=== PATIENT | female | born 1960 | race Caucasian/White ===

== ENCOUNTER 2017-02-28 14:18 | Inpatient (IN) | payer OTHER ==
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
[2017-02-28 15:24] LABS: Basophils % (A) 1 %; CH 31.4; CHCM 35.2; Eosinophils # (A) 0.1 k/uL (0-0.7); Eosinophils % (A) 1 %; HCT 43.2 % (34.0-46.0); HDW 2.81; HGB 15.1 gm/dL (11.4-16.0); Luc # (Auto) 0.11; Luc % (Auto) 2; Lymphocytes % (A) 18 %; MCH 31.2 pg (25.0-35.0); MCHC 34.9 g/dL (31.0-37.0); MCV 89.4 fL (80.0-100.0); Mean Platelet Volume 6.8; Monocytes # (A) 0.3 k/uL (0-1.0); Monocytes % (A) 6 %; Neutrophils # (A) 4.2 k/uL (1.3-7.7); Neutrophils % (A) 73 %; RBC 4.83 m/uL (3.80-5.40); RDW 13.3 % (11.5-15.5); WBC 5.8 k/uL (3.8-10.6); WBC (Perox) 5.28
[2017-02-28 15:34] LABS: ALT 59 U/L (9-52); AST 47 U/L (14-36); Alkaline Phosphatase 56 U/L (38-126); Anion Gap 12 mmol/L; Blood Urea Nitrogen 14 mg/dL (7-17); Calcium 9.4 mg/dL (8.4-10.2); Carbon Dioxide 21 mmol/L (22-30); Chloride 101 mmol/L (98-107); Glucose 316 mg/dL (74-99); Non-African American GFR(MDRD) >60 (>60 ml/min/1.73 sqM); Sodium 134 mmol/L (137-145)
[2017-02-28 15:37] LABS: Potassium 4.2 mmol/L (3.5-5.1)
[2017-02-28 16:00] LABS: Troponin I 0.013 ng/mL (0.000-0.034)
[2017-02-28 16:05] LABS: Creatine Kinase MB 3.7 ng/mL (0.0-2.4)
[2017-02-28] MEDS ORDERED: HYDROmorphone 1 MG/ML 1 ML SYRINGE IVP STA (16:08)
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
[2017-02-28] MEDS ORDERED: ONDANSETRON 4 MG/2 ML VIAL IVP STA (18:17)
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
[2017-02-28] MEDS ORDERED: ONDANSETRON 4 MG/2 ML VIAL IVP PRN (19:42)
[2017-02-28] MEDS ORDERED: NALOXONE 0.4 MG/ML 1 ML VIAL IV PRN (19:42)
[2017-02-28] MEDS: SODIUM CHLORIDE 0.9% 1,000 ML IV SCH (20:22)
[2017-02-28 20:35] LABS: Glucose,Whole Blood 333 mg/dL (75-99)
[2017-02-28] MEDS: INSULIN LISPRO (humaLOG) 300 UNIT/3 ML VIAL SQ SCH (22:13)
[2017-02-28] MEDS: glipiZIDE 10 MG TAB PO SCH (22:13)
[2017-02-28] MEDS: FAMOTIDINE 20 MG TAB PO SCH (22:13)
[2017-02-28 22:24] LABS: Glucose,Whole Blood 314 mg/dL (75-99)
[2017-02-28 23:56] LABS: Creatine Kinase MB 4.1 ng/mL (0.0-2.4); Troponin I 0.072 ng/mL (0.000-0.034)
[2017-03-01] MEDS: HYDROmorphone 1 MG/ML 1 ML SYRINGE IVP PRN ×2 (03:32→08:38)
[2017-03-01 03:39] LABS: Creatine Kinase MB 3.5 ng/mL (0.0-2.4); Troponin I 0.067 ng/mL (0.000-0.034)
--- NOTE | 2017-03-01 06:33 | XR ---
EXAMINATION TYPE: XR chest 2V DATE OF EXAM: 03/01/2017 HISTORY: Recheck, rule out pulmonary contusion. REFERENCE: Previous study dated 02/28/2017. FINDINGS: The lungs appear clear. Pleural space are clear. Heart size is normal. IMPRESSION: NO ACUTE INTRATHORACIC ABNORMALITY.
[2017-03-01 06:42] LABS: Glucose,Whole Blood 221 mg/dL (75-99)
[2017-03-01] MEDS: INSULIN LISPRO (humaLOG) 300 UNIT/3 ML VIAL SQ SCH ×4 (06:56→21:14)
[2017-03-01] MEDS ORDERED: BISOPROLOL-HCTZ 5-6.25 MG 1 EACH TAB PO SCH (09:00)
[2017-03-01] MEDS ORDERED: NON-FORMULARY DRUG (Ubidecarenone [Co Q-10] 100 MG) PO SCH (09:00)
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
[2017-03-01] MEDS: FAMOTIDINE 20 MG TAB PO SCH ×2 (10:43→21:13)
[2017-03-01] MEDS: glipiZIDE 10 MG TAB PO SCH (10:43)
[2017-03-01] MEDS: LISINOPRIL 10 MG TAB PO SCH (10:44)
[2017-03-01 10:50] LABS: Hemoglobin A1C 12.3 % (4.2-6.1)
[2017-03-01] MEDS ORDERED: ALBUTEROL NEBULIZED 2.5 MG/3 ML INHALATION PRN (11:26)
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
[2017-03-01 12:17] LABS: Glucose,Whole Blood 274 mg/dL (75-99)
--- NOTE | 2017-03-01 12:18 | ECHOF ---
Referral Reason:Rule out cardiac contusion, pericardial effusion MEASUREMENTS -------- HEIGHT: 160.0 cm WEIGHT: 70.8 kg BP: 149/76 IVSd: 1.2 cm (0.6 - 1.1) LVIDd: 4.1 cm (3.9 - 5.3) LVPWd: 1.2 cm (0.6 - 1.1) LVIDs: 3.2 cm RVIDd: 2.7 cm (< 3.3) LAESV Index (A-L): 17.36 ml/m Ao Diam: 3.0 cm (2.0 - 3.7) LA Diam: 3.4 cm (2.7 - 3.8) AV Cusp: 1.7 cm (1.5 - 2.6) EPSS: 1.1 cm MV E Mendel: 0.74 m/s MV DecT: 448 ms MV A Mendel: 1.19 m/s MV E/A Ratio: 0.62 RAP: 5.00 mmHg RVSP: 11.07 mmHg MV EF SLOPE: 107.95 mm/s (70 - 150) MV EXCURSION: 14.58 mm (> 18.000) FINDINGS -------- Sinus rhythm. This was a technically good study. The left ventricular size is normal. There is mild concentric left ventricular hypertrophy. Overall left ventricular systolic function is normal with, an EF between 55 - 60 %. The right ventricle is normal in size and function. Normal LA size by volume 22+/-6 ml/m2. The right atrium is normal in size. Aortic valve is trileaflet and is mildly thickened. There is no evidence of aortic regurgitation. There is no evidence of aortic stenosis. The mitral valve leaflets are mildly thickened. There is trace mitral regurgitation. Trace tricuspid regurgitation present. Right ventricular systolic pressure is normal at < 35 mmHg. There is no evidence of pulmonary hypertension. The pulmonic valve is normal. The aortic root size is normal. Normal inferior vena cava with normal inspiratory collapse consistent with estimated right atrial pressure of 5 mmHg. The pericardium is normal. There is a trivial pericardial effusion present. CONCLUSIONS -------- 1. Sinus rhythm. 2. Trace tricuspid regurgitation present. 3. Right ventricular systolic pressure is normal at < 35 mmHg. 4. There is no evidence of pulmonary hypertension. 5. The aortic root size is normal. 6. There is a trivial pericardial effusion present. 7. This was a technically good study. 8. The left ventricular size is normal. 9. There is mild concentric left ventricular hypertrophy. 10. Overall left ventricular systolic function is normal with, an EF between 55 - 60 %. 11. Normal LA size by volume 22+/-6 ml/m2. 12. Aortic valve is trileaflet and is mildly thickened. 13. The mitral valve leaflets are mildly thickened. 14. There is trace mitral regurgitation. [place] MATE: Lionel Hitchcock RDCS
[2017-03-01] MEDS: HYDROcodone/APAP 5-325MG 1 EACH TAB PO PRN ×3 (12:23→21:09)
[2017-03-01] MEDS: SODIUM CHLORIDE 0.9% 1,000 ML IV SCH (12:24)
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
[2017-03-01 17:29] LABS: Glucose,Whole Blood 261 mg/dL (75-99)
[2017-03-01] MEDS ORDERED: INSULIN GLARGINE 100 UNIT/ML 10 ML VIAL SQ SCH (21:00)
[2017-03-01 21:08] LABS: Glucose,Whole Blood 230 mg/dL (75-99)
[2017-03-02] MEDS: HYDROcodone/APAP 5-325MG 1 EACH TAB PO PRN ×2 (00:34→06:27)
[2017-03-02] MEDS: SODIUM CHLORIDE 0.9% 1,000 ML IV SCH (00:35)
[2017-03-02] MEDS: glipiZIDE 10 MG TAB PO SCH ×2 (00:35→08:15)
[2017-03-02 04:58] VITALS: RESP 18
[2017-03-02 06:02] LABS: Glucose,Whole Blood 173 mg/dL (75-99)
[2017-03-02] MEDS: INSULIN LISPRO (humaLOG) 300 UNIT/3 ML VIAL SQ SCH ×2 (06:26→12:01)
[2017-03-02] MEDS: FAMOTIDINE 20 MG TAB PO SCH (08:15)
[2017-03-02] MEDS: LISINOPRIL 10 MG TAB PO SCH (08:15)
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
[2017-03-02 11:54] LABS: Glucose,Whole Blood 279 mg/dL (75-99)
[2017-03-02 12:24] VITALS: BP 161/76; PULSE 80; TEMP 97.6
[2017-03-02 13:23] VITALS: BMI 27.9
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
== END 2017-03-02 14:30 | disposition home or self-care (01) | DRG 184 ==
LOC: EC 14:18 → 6SEL 19:42
PROVIDERS: ADMIT Surgery; ATTEND Surgery
DX: S22.20XA Unspecified fracture of sternum, initial encounter for closed fracture (principal); S26.91XA Contusion of heart, unspecified with or without hemopericardium, initial encounter; E87.1 Hypo-osmolality and hyponatremia; E11.65 Type 2 diabetes mellitus with hyperglycemia; M48.02 Spinal stenosis, cervical region; M51.34 Other intervertebral disc degeneration, thoracic region; M47.814 Spondylosis without myelopathy or radiculopathy, thoracic region; M16.0 Bilateral primary osteoarthritis of hip; I10 Essential (primary) hypertension; K21.9 Gastro-esophageal reflux disease without esophagitis; E11.9 Type 2 diabetes mellitus without complications; R59.9 Enlarged lymph nodes, unspecified; E78.5 Hyperlipidemia, unspecified; Z79.84 Long term (current) use of oral hypoglycemic drugs; Z79.899 Other long term (current) drug therapy; Z90.710 Acquired absence of both cervix and uterus; Z85.71 Personal history of Hodgkin lymphoma; Z87.891 Personal history of nicotine dependence; Z88.1 Allergy status to other antibiotic agents; Z88.0 Allergy status to penicillin; Z88.2 Allergy status to sulfonamides; V49.40XA Driver injured in collision with unspecified motor vehicles in traffic accident, initial encounter; Y92.410 Unspecified street and highway as the place of occurrence of the external cause
CPT/HCPCS: 36415; 71020; 71250; 72070; 72100; 72125; 72170; 80053; 82550; 82553; 83036; 84484; 85025; 93005; 93306; 96361; 96374; 96375; 99285

== ENCOUNTER → 2017-05-15 | Outpatient (CLI) | payer OTHER ==
--- NOTE | 2017-05-15 14:48 | XR ---
Sternum HISTORY: Sternal fracture, Trauma and pain 02/28/2017 2 views of the sternum. Exam correlated to CT 02/28/2017 The patient's sternal fracture is not seen well on plain film, CT scan could be performed for better evaluation. Bone scan may be of benefit. Bone mineralization is maintained. No evident dislocation. N o evident periostitis is seen to suggest fracture healing. IMPRESSION: Exam is limited for evaluation of fracture.
--- NOTE | 2017-05-15 15:01 | XR ---
Two-view spine HISTORY: Trauma 02/28/2017, persistent pain 2 views of the spine are submitted to include 3 views of the cervical spine, frontal and lateral view s of the thoracic and lumbar spine total of 9 images. Correlation to prior CT cervical spine 02/28/2017 The posterior longitudinal ligament shows the calcification as on previous CT. Multilevel spondylosis is again seen. Cervical, thoracic, lumbar vertebral bodies show preserved height and alignment. Bone mineralization is mildly reduced. Disc height loss is present at multiple levels. Sclerosis in the p osterior elements of the lower lumbar spine compatible with facet arthropathy. C7-T1 not well seen. IMPRESSION: Degenerative disc disease, facet arthropathy, ossification of the longitudinal ligament.
--- NOTE | 2017-05-15 15:07 | XR ---
EXAMINATION TYPE: XR chest 2V DATE OF EXAM: 05/15/2017 COMPARISON: Prior chest x-ray 03/01/2017 HISTORY: Renal fracture TECHNIQUE: Frontal and lateral views of the chest are obtained. FINDINGS: There is no focal air space opacity, pleural effusion, or pneumothorax seen. The cardiac silhouette size is within normal limits. The osseous structures are intact. IMPRESSION: No acute cardiopulmonary process.
== END | disposition home or self-care (01) ==
LOC: RADXRMAIN 10:40
PROVIDERS: ATTEND Family Medicine
DX: M50.30 Other cervical disc degeneration, unspecified cervical region (principal); S22.20XS Unspecified fracture of sternum, sequela
CPT/HCPCS: 71020; 71120; 72082

== ENCOUNTER → 2017-05-19 | Outpatient (CLI) | payer OTHER ==
--- NOTE | 2017-05-20 10:50 | ECHOF ---
Referral Reason:S26.91XS Contusion of heart, unspecified MEASUREMENTS -------- HEIGHT: 165.1 cm WEIGHT: 70.3 kg BP: RVIDd: 2.5 cm (< 3.3) IVSd: 1.3 cm (0.6 - 1.1) LVIDd: 4.1 cm (3.9 - 5.3) LVPWd: 1.0 cm (0.6 - 1.1) IVSs: 1.6 cm LVIDs: 3.4 cm LVPWs: 1.1 cm LA Diam: 3.0 cm (2.7 - 3.8) LAESV Index (A-L): 17.43 ml/m Ao Diam: 2.6 cm (2.0 - 3.7) AV Cusp: 1.6 cm (1.5 - 2.6) LA Diam: 3.6 cm (2.7 - 3.8) MV EXCURSION: 13.970 mm (> 18.000) MV EF SLOPE: 68 mm/s (70 - 150) EPSS: 0.9 cm MV E Mendel: 0.45 m/s MV DecT: 274 ms MV A Mendel: 0.62 m/s MV E/A Ratio: 0.73 RAP: 5.00 mmHg RVSP: 22.84 mmHg FINDINGS -------- Sinus rhythm. This was a technically good study. The left ventricular size is normal. There is mild concentric left ventricular hypertrophy. Overa ll left ventricular systolic function is normal with, an EF between 55 - 60 %. The right ventricle is normal in size. Normal LA size by volume 22+/-6 ml/m2. The right atrial size is normal. The aortic valve is trileaflet, and appears structurally normal. No aortic stenosis or regurgitation. Mild mitral regurgitation is present. Mild tricuspid regurgitation present. There is no evidence of pulmonary hypertension. The right v entricular systolic pressure, as measured by Doppler, is 22.84mmHg. There is no pulmonic regurgitation present. The aortic root size is normal. There is no pericardial effusion. CONCLUSIONS -------- 1. The left ventricular size is normal. 2. There is mild concentric left ventricular hypertrophy. 3. Overall left ventricular systolic function is normal with, an EF between 55 - 60 %. 4. The aortic valve is trileaflet, and appears structurally normal. No aortic stenosis or regurgitati on. 5. Mild mitral regurgitation is present. 6. Mild tricuspid regurgitation present. 7. There is no evidence of pulmonary hypertension. 8. The right ventricular systolic pressure, as measured by Doppler, is 22.84mmHg. 9. There is no pulmonic regurgitation present. 10. The aortic root size is normal. 11. There is no pericardial effusion. 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
== END | disposition home or self-care (01) ==
LOC: RADECHMAIN 08:18
PROVIDERS: ATTEND Family Medicine
DX: I08.1 Rheumatic disorders of both mitral and tricuspid valves (principal); S26.9 Injury of heart, unspecified with or without hemopericardium
CPT/HCPCS: 93306

== ENCOUNTER → 2017-12-31 | Outpatient (CLI) | payer OTHER ==
--- NOTE | 2017-12-31 09:43 | MR ---
EXAMINATION TYPE: MR shoulder LT wo con DATE OF EXAM: 12/31/2017 COMPARISON: None HISTORY: Left shoulder pain TECHNIQUE: Multiplanar, multisequence imaging of the left shoulder is performed without contrast. FINDINGS: Rotator Cuff: There is diffuse thickening and increased signal involving the distal margin of the sup raspinatus tendon extending a length of 2 cm in AP dimension of 1.6 cm. Findings compatible with diff use tendinopathy and partial intrasubstance tear with no evidence of retraction. There is thickening of the insertion of the infraspinatus tendon but no diagnostic evidence of throug h thickness tear or retraction. Scapularis tendon intact. Acromioclavicular Joint: Mild hypertrophic change of the AC joint. With very minimal impingement. Glenohumeral Joint: Joint space preserved and there is no sizable joint effusion. Inferior glenohumer al ligament intact. Labrum: The labrum appears grossly intact given limitation of non-arthrogram study. Biceps Tendon: The long head of biceps is in normal location within bicipital groove. Bone marrow signal: Tiny cystic benign-appearing changes involving the humeral head may been the basi s of impingement. Other: No additional significant abnormality is appreciated. IMPRESSION: 1. Findings compatible with diffuse tendinopathy of the distal margin of the supraspinatus tendon wit h findings compatible with a 1.6 m partial intrasubstance tear but no evidence of retraction. 2. Tendinopathy at the insertion of the infraspinatus tendon without evidence of overt tear also note d.
== END | disposition home or self-care (01) ==
LOC: RADMRIMAIN 08:54
PROVIDERS: ATTEND Family Medicine
DX: M75.82 Other shoulder lesions, left shoulder (principal)

== ENCOUNTER 2020-09-17 09:06 | Emergency (ER) | payer MEDICARE ==
[2020-09-17 09:13] VITALS: RESP 18; TEMP 98.1
[2020-09-17] MEDS ORDERED: SODIUM CHLORIDE 0.9% 500 ML 500 ML IV STA (09:31)
--- NOTE | 2020-09-17 09:45 | ED ---
General Adult HPI - General Chief complaint: Seizure Stated complaint: seizure Time Seen by Provider: 09/17/20 09:09 Source: patient, RN notes reviewed, old records reviewed Mode of arrival: ambulatory Limitations: no limitations - History of Present Illness Initial comments: 59-year-old female history of hypertension, diabetes, vascular dementia presen ting with suspected syncopal versus seizure. History is obtained from the patient's and EMS. Patient had begun to collapse, she was caught by her and lowered to the ground. She had approximately 10 minutes of unresponsiveness and seizure-like activity. She is at her baseline mental status upon arrival to the emergency department with no complaints. There is no preceding symptoms. Patient's states that she has been eating and drinking well. No fever. No pain complaints. No history of seizures. - Related Data Home Medications Medication Instructions Recorded Confirmed Multivitamins, Thera [Multivitamin 1 tab PO DAILY 02/28/17 02/28/17 (formulary)] Ubidecarenone [Co Q-10] 100 mg PO DAILY 02/28/17 02/28/17 glipiZIDE [Glucotrol] 10 mg PO BID 02/28/17 02/28/17 Previous Rx's Medication Instructions Recorded Docusate [Colace] 100 mg PO BID #30 capsule 03/01/17 Hydrocodone/Acetaminophen [Seney 1 each PO Q6HR PRN #10 tab 03/01/17 5-325] Insulin Glargine [Lantus] 20 unit SQ HS #1 vial 03/02/17 Lisinopril [Prinivil] 20 mg PO DAILY #0 03/02/17 Allergies Allergy/AdvReac Type Severity Reaction Status Date / Time levofloxacin Allergy Rash/Hives Verified 09/17/20 09:13 Penicillins Allergy Rash/Hives Verified 09/17/20 09:13 Sulfa (Sulfonamide Allergy Unknown Verified 09/17/20 09:13 Antibiotics) Review of Systems ROS Statement: Those systems with pertinent positive or pertinent negative responses have been documented in the HPI. ROS Other: All systems not noted in ROS Statement are negative. Past Medical History Past Medical History: Cancer, CVA/TIA, Dementia, Diabetes Mellitus Additional Past Medical History / Comment(s): hodgkin's lymphoma, vasular dementia, History of Any Multi-Drug Resistant Organisms: None Reported Past Surgical History: Hysterectomy Additional Past Surgical History / Comment(s): left sided chest Past Psychological History: No Psychological Hx Reported Smoking Status: Former smoker Past Alcohol Use History: None Reported Past Drug Use History: None Reported General Exam Limitations: no limitations General appearance: alert, in no apparent distress Head exam: Present: atraumatic, normocephalic Eye exam: Present: normal appearance, PERRL ENT exam: Present: normal exam Neck exam: Present: normal inspection. Absent: tenderness, meningismus Respiratory exam: Present: normal lung sounds bilaterally. Absent: respiratory distress, wheezes Cardiovascular Exam: Present: regular rate, normal rhythm GI/Abdominal exam: Present: soft. Absent: distended, tenderness, guarding Neurological exam: Present: alert, CN II-XII intact, other (Expressive aphasia, which is baseline.). Absent: oriented X3, motor sensory deficit Psychiatric exam: Present: normal affect, normal mood Skin exam: Present: warm, dry, intact. Absent: cyanosis, diaphoretic Course Vital Signs 09/17/20 09/17/20 09:08 11:27 Temperature 98.1 F Pulse Rate 94 92 Respiratory 18 18 Rate Blood Pressure 116/66 120/84 O2 Sat by Pulse 96 97 Oximetry EKG Findings - EKG Comments: EKG Findings:: EKG: Normal sinus rhythm rate of 89, [place] interval 156, QRS duration 90, QTC 462, no ST segment elevation T-wave inversion in the lateral precordial leads. Medical Decision Making - Medical Decision Making 59-year-old female presenting with suspected seizure, no previous history. Head CT performed showing chronic ischemic changes, possible cerebellar infarct. No intracranial hemorrhage or mass effect. Patient is hemodynamically stable, baseline mental status while emergency department. She does have a normal CMP, normal CBC, mild hypomagnesemia which is replaced. She will be admitted with neurology on consult for suspected new onset seizure. Case discussed with Dr. Arroyo who will admit. - Lab Data Result diagrams: 09/17/20 09:38 09/17/20 09:38 Lab Results 09/17/20 09/17/20 Range/Units 09:38 09:38 WBC 4.5 (3.8-10.6) k/uL RBC 4.36 (3.80-5.40) m/uL Hgb 13.2 (11.4-16.0) gm/dL Hct 40.2 (34.0-46.0) % MCV 92.2 (80.0-100.0) fL MCH 30.2 (25.0-35.0) pg MCHC 32.8 (31.0-37.0) g/dL RDW 13.4 (11.5-15.5) % Plt Count 218 (150-450) k/uL MPV 7.5 Neutrophils % 68 % Lymphocytes % 19 % Monocytes % 6 % Eosinophils % 5 % Basophils % 1 % Neutrophils # 3.1 (1.3-7.7) k/uL Lymphocytes # 0.9 L (1.0-4.8) k/uL Monocytes # 0.3 (0-1.0) k/uL Eosinophils # 0.2 (0-0.7) k/uL Basophils # 0.0 (0-0.2) k/uL Sodium 142 (137-145) mmol/L Potassium 4.1 (3.5-5.1) mmol/L Chloride 108 H (98-107) mmol/L Carbon Dioxide 26 (22-30) mmol/L Anion Gap 8 mmol/L BUN 30 H (7-17) mg/dL Creatinine 0.85 (0.52-1.04) mg/dL Est GFR (CKD-EPI)AfAm 88 (>60 ml/min/1.73 sqM) Est GFR (CKD-EPI)NonAf 76 (>60 ml/min/1.73 sqM) Glucose 123 H (74-99) mg/dL Calcium 9.7 (8.4-10.2) mg/dL Magnesium 1.3 L (1.6-2.3) mg/dL Total Bilirubin 0.7 (0.2-1.3) mg/dL AST 30 (14-36) U/L ALT 17 (4-34) U/L Alkaline Phosphatase 29 L (38-126) U/L Total Protein 7.1 (6.3-8.2) g/dL Albumin 4.2 (3.5-5.0) g/dL Disposition Clinical Impression: New onset seizure Disposition: ADMITTED IP TO THIS HOSP Condition: Stable Is patient prescribed a controlled substance at d/c from ED?: No Referrals: Kacie Rogers MD [Primary Care Provider] - 1-2 days Decision to Admit Reason: Admit from EC Decision Date: 09/17/20 Decision Time: 12:06
--- NOTE | 2020-09-17 10:12 | CT ---
EXAMINATION TYPE: CT brain wo con DATE OF EXAM: 09/17/2020 HISTORY: Possible seizure activity per patient family. History of dementia and CVA. CT DLP: 1056.4 mGycm. Automated Exposure Control for Dose Reduction was Utilized. TECHNIQUE: CT scan of the head is performed without contrast. COMPARISON: None. FINDINGS: There is no acute intracranial hemorrhage or midline shift identified. There is mild to m oderate diffuse ventricular and sulcal prominence consistent with diffuse age-related cerebral atroph y. There is mild to moderate low-attenuation in the periventricular white matter consistent with chr onic small vessel ischemic change. Old infarct inferior aspect right cerebellar hemisphere and infer ior central aspect left cerebellar hemisphere suspected axial image 15. The globes are intact and the visualized sinuses are clear. IMPRESSION: No acute intracranial hemorrhage or midline shift. There is mild to moderate diffuse ag e-related cerebral atrophy and chronic small vessel ischemic change along with bilateral inferior cer ebellar infarcts all noted.
[2020-09-17 10:15] LABS: Basophils % (A) 1 %; Eosinophils # (A) 0.2 k/uL (0-0.7); Eosinophils % (A) 5 %; HCT 40.2 % (34.0-46.0); HGB 13.2 gm/dL (11.4-16.0); Lymphocytes # (A) 0.9 k/uL (1.0-4.8); Lymphocytes % (A) 19 %; MCH 30.2 pg (25.0-35.0); MCHC 32.8 g/dL (31.0-37.0); MCV 92.2 fL (80.0-100.0); Mean Platelet Volume 7.5; Monocytes # (A) 0.3 k/uL (0-1.0); Monocytes % (A) 6 %; Neutrophils # (A) 3.1 k/uL (1.3-7.7); Neutrophils % (A) 68 %; Platelet Count 218 k/uL (150-450); RBC 4.36 m/uL (3.80-5.40); RDW 13.4 % (11.5-15.5); WBC 4.5 k/uL (3.8-10.6)
--- NOTE | 2020-09-17 10:16 | XR ---
EXAMINATION TYPE: XR chest 2V DATE OF EXAM: 09/17/2020 CLINICAL HISTORY: syncope/seizure. TECHNIQUE: Frontal and lateral view of the chest. COMPARISON: 05/15/2017 FINDINGS: The cardiomediastinal silhouette is within normal limits for size. Pulmonary vasculature i s normal. There is no focal air space opacity. No pleural effusion. No pneumothorax seen. Degenerati ve changes of the spine. IMPRESSION: No acute cardiopulmonary process.
[2020-09-17 10:30] LABS: Albumin 4.2 g/dL (3.5-5.0); Calcium 9.7 mg/dL (8.4-10.2); Magnesium 1.3 mg/dL (1.6-2.3); Potassium 4.1 mmol/L (3.5-5.1); Total Bilirubin 0.7 mg/dL (0.2-1.3); Total Protein 7.1 g/dL (6.3-8.2)
[2020-09-17] MEDS ORDERED: MAGNESIUM SULFATE-D5W PMX 1 GM in DEXTROSE/WATER 1 100ML.BAG IVPB ONE (11:24)
[2020-09-17] MEDS ORDERED: NALOXONE 0.4 MG/ML 1 ML VIAL IV PRN (12:02)
[2020-09-17] MEDS ORDERED: ACETAMINOPHEN TAB 325 MG TAB PO PRN (12:02)
[2020-09-17] MEDS ORDERED: SODIUM CHLORIDE 0.9% 1,000 ML IV SCH (12:15)
[2020-09-17 12:39] LABS: Appearance,Urine Clear (Clear); Bacteria,Urine Many /hpf; Bilirubin,Urine Negative (Negative); Blood,Urine Trace (Negative); Color,Urine Light Yellow; Glucose,Urine (UA) Negative (Negative); Ketones,Urine Negative (Negative); Leukocyte Esterase,Urine Small (Negative); Mucus,Urine Rare /hpf; Nitrite,Urine Negative (Negative); Protein,Urine Negative (Negative); RBC,Urine 6 /hpf (0-5); Specific Gravity,Urine 1.008 (1.001-1.035); Urobilinogen,Urine <2.0 mg/dL (<2.0); WBC,Urine 6 /hpf (0-5)
--- NOTE | 2020-09-17 13:08 | ED ---
Medical Decision Making - Lab Data Result diagrams: 09/17/20 09:38 09/17/20 09:38 Lab Results 09/17/20 09/17/20 09/17/20 Range/Units 09:38 09:38 09:38 WBC 4.5 (3.8-10.6) k/uL RBC 4.36 (3.80-5.40) m/uL Hgb 13.2 (11.4-16.0) gm/dL Hct 40.2 (34.0-46.0) % MCV 92.2 (80.0-100.0) fL MCH 30.2 (25.0-35.0) pg MCHC 32.8 (31.0-37.0) g/dL RDW 13.4 (11.5-15.5) % Plt Count 218 (150-450) k/uL MPV 7.5 Neutrophils % 68 % Lymphocytes % 19 % Monocytes % 6 % Eosinophils % 5 % Basophils % 1 % Neutrophils # 3.1 (1.3-7.7) k/uL Lymphocytes # 0.9 L (1.0-4.8) k/uL Monocytes # 0.3 (0-1.0) k/uL Eosinophils # 0.2 (0-0.7) k/uL Basophils # 0.0 (0-0.2) k/uL Sodium 142 (137-145) mmol/L Potassium 4.1 (3.5-5.1) mmol/L Chloride 108 H (98-107) mmol/L Carbon Dioxide 26 (22-30) mmol/L Anion Gap 8 mmol/L BUN 30 H (7-17) mg/dL Creatinine 0.85 (0.52-1.04) mg/dL Est GFR (CKD-EPI)AfAm 88 (>60 ml/min/1.73 sqM) Est GFR (CKD-EPI)NonAf 76 (>60 ml/min/1.73 sqM) Glucose 123 H (74-99) mg/dL Calcium 9.7 (8.4-10.2) mg/dL Magnesium 1.3 L (1.6-2.3) mg/dL Total Bilirubin 0.7 (0.2-1.3) mg/dL AST 30 (14-36) U/L ALT 17 (4-34) U/L Alkaline Phosphatase 29 L (38-126) U/L Total Protein 7.1 (6.3-8.2) g/dL Albumin 4.2 (3.5-5.0) g/dL Urine Color Light Yellow Urine Appearance Clear (Clear) Urine pH 7.0 (5.0-8.0) Ur Specific [place] 1.008 (1.001-1.035) Urine Protein Negative (Negative) Urine Glucose (UA) Negative (Negative) Urine Ketones Negative (Negative) Urine Blood Trace H (Negative) Urine Nitrite Negative (Negative) Urine Bilirubin Negative (Negative) Urine Urobilinogen <2.0 (<2.0) mg/dL Ur Leukocyte Esterase Small H (Negative) Urine RBC 6 H (0-5) /hpf Urine WBC 6 H (0-5) /hpf Urine Bacteria Many H (None) /hpf Urine Mucus Rare H (None) /hpf Disposition Clinical Impression: New onset seizure Disposition: ADMITTED IP TO THIS [facility] Condition: Stable Time of Disposition: 13:08
[2020-09-17 13:44] VITALS: BP 120/75; PULSE 87
== END 2020-09-17 13:40 | disposition home or self-care (01) ==
LOC: EC 09:06 → 1SOBS 12:02 → UNDOADMOB 12:02 → EC 13:40
DX: R55 Syncope and collapse (principal); E11.9 Type 2 diabetes mellitus without complications; F03.90 Unspecified dementia, unspecified severity, without behavioral disturbance, psychotic disturbance, mood disturbance, and anxiety; Z86.73 Personal history of transient ischemic attack (TIA), and cerebral infarction without residual deficits; Z87.891 Personal history of nicotine dependence; Z90.710 Acquired absence of both cervix and uterus; Z85.9 Personal history of malignant neoplasm, unspecified; Z79.4 Long term (current) use of insulin
CPT/HCPCS: 36415; 93005; 80053; 83735; 85025; 81001; 71046; 70450; 99285; 96365; 96361; J3475

== ENCOUNTER 2020-09-24 04:11 | Observation (INO) | payer MEDICARE ==
--- NOTE | 2020-09-24 04:26 | ED ---
Seizure HPI - General Stated Complaint: Altered Mental Status Time Seen by Provider: 09/24/20 04:13 Source: patient, EMS, RN notes reviewed, old records reviewed Mode of arrival: EMS Limitations: altered mental status - History of Present Illness Initial Comments: This is a 51-year-old female DF for evaluation patient Dese for evaluation of altered mental status and acting appropriately seizure-like activity. Patient does have history of seizure. No recent trauma no drug or alcohol abuse per the patient. Patient is a poor story that she presents in a postictal state history obtained by EMS MD Complaint: seizure, possible seizure -: unknown Description of Episode: loss of consciousness -: second(s) Witnessed: yes - by bystander Trauma: Yes Seizure History: known seizure disorder Place: home Possible Precipitating Event: none Associated Symptoms: confusion, weakness Treatments Prior to Arrival: none - Related Data Home Medications Medication Instructions Recorded Confirmed Aspirin EC [Ecotrin Low Dose] 81 mg PO DAILY 09/17/20 09/24/20 Bisoprolol-Hctz 5-6.25 mg [Ziac 1 tab PO DAILY 09/17/20 09/24/20 5-6.25 MG] Cholecalciferol [Vitamin D3 (25 50 mcg PO DAILY 09/17/20 09/24/20 Mcg = 1000 Iu)] Dextromethorphan HBr/Quinidine 1 cap PO BID 09/17/20 09/24/20 [Nuedexta 20-10 mg Capsule] Insulin Glargine,Hum.rec.anlog 15 unit SQ DAILY 09/17/20 09/24/20 [Lantus Solostar] Lisinopril [Prinivil] 10 mg PO DAILY 09/17/20 09/24/20 Multivit-Min/Iron/Folic/Lutein 1 tab PO DAILY 09/17/20 09/24/20 [Centrum Silver Women Tablet] Pioglitazone [Actos] 15 mg PO DAILY 09/17/20 09/24/20 QUEtiapine [SEROquel] 25 mg PO DAILY 09/17/20 09/24/20 QUEtiapine [SEROquel] 50 mg PO HS 09/17/20 09/24/20 metFORMIN HCL [Glucophage] 1,000 mg PO BID 09/17/20 09/24/20 Previous Rx's Medication Instructions Recorded Atorvastatin [Lipitor] 40 mg PO HS 30 Days #30 tab 09/26/20 Levothyroxine Sodium [Synthroid] 25 mcg PO DAILY@0630 30 Days #30 09/26/20 tab Nitrofurantoin Monohyd/M-Cryst 100 mg PO Q12HR 7 Days #14 cap 09/26/20 [Macrobid] levETIRAcetam [Keppra] 500 mg PO Q12HR 30 Days #60 tab 09/26/20 Allergies Allergy/AdvReac Type Severity Reaction Status Date / Time levofloxacin Allergy Rash/Hives Verified 09/24/20 06:58 Penicillins Allergy Rash/Hives Verified 09/24/20 06:58 Sulfa (Sulfonamide Allergy Unknown Verified 09/24/20 06:58 Antibiotics) Review of Systems ROS Statement: Those systems with pertinent positive or pertinent negative responses have been documented in the HPI. ROS Other: All systems not noted in ROS Statement are negative. Past Medical History Past Medical History: Cancer, CVA/TIA, Dementia, Diabetes Mellitus, Seizure Disorder Additional Past Medical History / Comment(s): hodgkin's lymphoma, vasular dementia, History of Any Multi-Drug Resistant Organisms: None Reported Past Surgical History: Hysterectomy Additional Past Surgical History / Comment(s): left sided chest Past Psychological History: No Psychological Hx Reported Smoking Status: Former smoker Past Alcohol Use History: None Reported Past Drug Use History: None Reported General Exam Limitations: altered mental status General appearance: alert, in no apparent distress Head exam: Present: atraumatic, normocephalic, normal inspection Eye exam: Present: normal appearance, PERRL, EOMI. Absent: scleral icterus, conjunctival injection, periorbital swelling ENT exam: Present: normal exam, mucous membranes moist Neck exam: Present: normal inspection. Absent: tenderness, meningismus, lymphadenopathy Respiratory exam: Present: normal lung sounds bilaterally. Absent: respiratory distress, wheezes, rales, rhonchi, stridor Cardiovascular Exam: Present: regular rate, normal rhythm, normal heart sounds. Absent: systolic murmur, diastolic murmur, rubs, gallop, clicks GI/Abdominal exam: Present: soft, normal bowel sounds. Absent: distended, tenderness, guarding, rebound, rigid Extremities exam: Present: normal inspection, full ROM, normal capillary refill. Absent: tenderness, pedal edema, joint swelling, calf tenderness Back exam: Present: normal inspection Neurological exam: Present: alert, oriented X3, CN II-XII intact Psychiatric exam: Present: normal affect, normal mood Skin exam: Present: warm, dry, intact, normal color. Absent: rash Course Vital Signs 09/24/20 09/24/20 09/24/20 04:21 07:00 07:02 Temperature 98.2 F 97.3 F L Pulse Rate 93 87 Pulse Rate [ 83 Left] Respiratory 16 18 16 Rate Blood Pressure 170/78 128/79 Blood Pressure 106/69 [Left Arm] O2 Sat by Pulse 98 97 99 Oximetry - Reevaluation(s) Reevaluation #1: Medical record is reviewed Patient has no significant acute symptoms improving symptoms here in the ER Patient informed results and questions have been answered Patient has had recurrent seizure here in the ER Medical Decision Making - Medical Decision Making 51 female DF for altered mental status, patient presents with seizure epileptic seizures in recurrent seizure here in the ER. Patient be admitted for neurological evaluation - Lab Data Result diagrams: 09/26/20 06:05 09/26/20 06:05 Lab Results 09/24/20 09/24/20 09/24/20 Range/Units 04:37 04:42 04:42 WBC (3.8-10.6) k/uL RBC (3.80-5.40) m/uL Hgb (11.4-16.0) gm/dL Hct (34.0-46.0) % MCV (80.0-100.0) fL MCH (25.0-35.0) pg MCHC (31.0-37.0) g/dL RDW (11.5-15.5) % Plt Count (150-450) k/uL MPV Neutrophils % % Lymphocytes % % Monocytes % % Eosinophils % % Basophils % % Neutrophils # (1.3-7.7) k/uL Lymphocytes # (1.0-4.8) k/uL Monocytes # (0-1.0) k/uL Eosinophils # (0-0.7) k/uL Basophils # (0-0.2) k/uL Sodium 141 (137-145) mmol/L Potassium 5.5 H (3.5-5.1) mmol/L Chloride 102 (98-107) mmol/L Carbon Dioxide 29 (22-30) mmol/L Anion Gap 10 mmol/L BUN 24 H (7-17) mg/dL Creatinine 0.84 (0.52-1.04) mg/dL Est GFR (CKD-EPI)AfAm 89 (>60 ml/min/1.73 sqM) Est GFR (CKD-EPI)NonAf 77 (>60 ml/min/1.73 sqM) Glucose 113 H (74-99) mg/dL POC Glucose (mg/dL) (75-99) mg/dL POC Glu [employer] Account Executive ID Estimated Ave Glu mg/dL Hemoglobin A1c (4.0-6.0) % Calcium 9.8 (8.4-10.2) mg/dL Total Bilirubin 1.0 (0.2-1.3) mg/dL AST 48 H (14-36) U/L ALT 23 (4-34) U/L Alkaline Phosphatase 32 L (38-126) U/L Total Protein 8.1 (6.3-8.2) g/dL Albumin 4.7 (3.5-5.0) g/dL Vitamin B6 (5-50) ug/L Vitamin B12 515.0 (200.0-944.0) pg/mL Folate >24.0 ng/mL TSH 9.210 H (0.350-5.500) uIU/mL Free T4 (0.80-1.80) ng/dL Urine Color Urine Appearance (Clear) Urine pH (5.0-8.0) Ur Specific [place] (1.001-1.035) Urine Protein (Negative) Urine Glucose (UA) (Negative) Urine Ketones (Negative) Urine Blood (Negative) Urine Nitrite (Negative) Urine Bilirubin (Negative) Urine Urobilinogen (<2.0) mg/dL Ur Leukocyte Esterase (Negative) Urine RBC (0-5) /hpf Urine WBC (0-5) /hpf Ur Squamous Epith Cells (0-4) /hpf Urine Bacteria (None) /hpf Urine Yeast (Budding) (None) /hpf Salicylates <1.0 mg/dL Urine Opiates Screen (NotDetected) Ur Oxycodone Screen (NotDetected) Urine Methadone Screen (NotDetected) Ur Propoxyphene Screen (NotDetected) Acetaminophen <10.0 ug/mL Ur Barbiturates Screen (NotDetected) U Tricyclic Antidepress (NotDetected) Ur Phencyclidine Scrn (NotDetected) Ur Amphetamines Screen (NotDetected) U Methamphetamines Scrn (NotDetected) U Benzodiazepines Scrn (NotDetected) Urine Cocaine Screen (NotDetected) U Marijuana (THC) Screen (NotDetected) Serum Alcohol <10 mg/dL Coronavirus (PCR) Not Detected (Not Detectd) 09/24/20 09/24/20 09/24/20 Range/Units 04:42 05:17 05:17 WBC 6.9 (3.8-10.6) k/uL RBC 4.13 (3.80-5.40) m/uL Hgb 13.0 (11.4-16.0) gm/dL Hct 37.9 (34.0-46.0) % MCV 91.7 (80.0-100.0) fL MCH 31.6 (25.0-35.0) pg MCHC 34.4 (31.0-37.0) g/dL RDW 13.0 (11.5-15.5) % Plt Count 236 (150-450) k/uL MPV 7.2 Neutrophils % 81 % Lymphocytes % 10 % Monocytes % 6 % Eosinophils % 2 % Basophils % 1 % Neutrophils # 5.6 (1.3-7.7) k/uL Lymphocytes # 0.7 L (1.0-4.8) k/uL Monocytes # 0.4 (0-1.0) k/uL Eosinophils # 0.2 (0-0.7) k/uL Basophils # 0.0 (0-0.2) k/uL Sodium (137-145) mmol/L Potassium (3.5-5.1) mmol/L Chloride (98-107) mmol/L Carbon Dioxide (22-30) mmol/L Anion Gap mmol/L BUN (7-17) mg/dL Creatinine (0.52-1.04) mg/dL Est GFR (CKD-EPI)AfAm (>60 ml/min/1.73 sqM) Est GFR (CKD-EPI)NonAf (>60 ml/min/1.73 sqM) Glucose (74-99) mg/dL POC Glucose (mg/dL) (75-99) mg/dL POC Glu [employer] Executive ID Estimated [address] Glu mg/dL 128 Hemoglobin A1c 6.1 H (4.0-6.0) % Calcium (8.4-10.2) mg/dL Total Bilirubin (0.2-1.3) mg/dL AST (14-36) U/L ALT (4-34) U/L Alkaline Phosphatase (38-126) U/L Total Protein (6.3-8.2) g/dL Albumin (3.5-5.0) g/dL Vitamin B6 (5-50) ug/L Vitamin B12 (200.0-944.0) pg/mL Folate ng/mL TSH (0.350-5.500) uIU/mL Free T4 1.20 (0.80-1.80) ng/dL Urine Color Urine Appearance (Clear) Urine pH (5.0-8.0) Ur Specific [place] (1.001-1.035) Urine Protein (Negative) Urine Glucose (UA) (Negative) Urine Ketones (Negative) Urine Blood (Negative) Urine Nitrite (Negative) Urine Bilirubin (Negative) Urine Urobilinogen (<2.0) mg/dL Ur Leukocyte Esterase (Negative) Urine RBC (0-5) /hpf Urine WBC (0-5) /hpf Ur Squamous Epith Cells (0-4) /hpf Urine Bacteria (None) /hpf Urine Yeast (Budding) (None) /hpf Salicylates mg/dL Urine Opiates Screen (NotDetected) Ur Oxycodone Screen (NotDetected) Urine Methadone Screen (NotDetected) Ur Propoxyphene Screen (NotDetected) Acetaminophen ug/mL Ur Barbiturates Screen (NotDetected) U Tricyclic Antidepress (NotDetected) Ur Phencyclidine Scrn (NotDetected) Ur Amphetamines Screen (NotDetected) U Methamphetamines Scrn (NotDetected) U Benzodiazepines Scrn (NotDetected) Urine Cocaine Screen (NotDetected) U Marijuana (THC) Screen (NotDetected) Serum Alcohol mg/dL Coronavirus (PCR) (Not Detectd) 09/24/20 09/24/20 09/24/20 Range/Units 11:27 17:15 17:47 WBC (3.8-10.6) k/uL RBC (3.80-5.40) m/uL Hgb (11.4-16.0) gm/dL Hct (34.0-46.0) % MCV (80.0-100.0) fL MCH (25.0-35.0) pg MCHC (31.0-37.0) g/dL RDW (11.5-15.5) % Plt Count (150-450) k/uL MPV Neutrophils % % Lymphocytes % % Monocytes % % Eosinophils % % Basophils % % Neutrophils # (1.3-7.7) k/uL Lymphocytes # (1.0-4.8) k/uL Monocytes # (0-1.0) k/uL Eosinophils # (0-0.7) k/uL Basophils # (0-0.2) k/uL Sodium (137-145) mmol/L Potassium (3.5-5.1) mmol/L Chloride (98-107) mmol/L Carbon Dioxide (22-30) mmol/L Anion Gap mmol/L BUN (7-17) mg/dL Creatinine (0.52-1.04) mg/dL Est GFR (CKD-EPI)AfAm (>60 ml/min/1.73 sqM) Est GFR (CKD-EPI)NonAf (>60 ml/min/1.73 sqM) Glucose (74-99) mg/dL POC Glucose (mg/dL) 165 H 79 98 (75-99) mg/dL POC Glu [employer] Executive ID Rhody, Oneyda Rhody, Oneyda Rhody, Oneyda [address] Glu mg/dL Hemoglobin A1c (4.0-6.0) % Calcium (8.4-10.2) mg/dL Total Bilirubin (0.2-1.3) mg/dL AST (14-36) U/L ALT (4-34) U/L Alkaline Phosphatase (38-126) U/L Total Protein (6.3-8.2) g/dL Albumin (3.5-5.0) g/dL Vitamin B6 (5-50) ug/L Vitamin B12 (200.0-944.0) pg/mL Folate ng/mL TSH (0.350-5.500) uIU/mL Free T4 (0.80-1.80) ng/dL Urine Color Urine Appearance (Clear) Urine pH (5.0-8.0) Ur Specific [place] (1.001-1.035) Urine Protein (Negative) Urine Glucose (UA) (Negative) Urine Ketones (Negative) Urine Blood (Negative) Urine Nitrite (Negative) Urine Bilirubin (Negative) Urine Urobilinogen (<2.0) mg/dL Ur Leukocyte Esterase (Negative) Urine RBC (0-5) /hpf Urine WBC (0-5) /hpf Ur Squamous Epith Cells (0-4) /hpf Urine Bacteria (None) /hpf Urine Yeast (Budding) (None) /hpf Salicylates mg/dL Urine Opiates Screen (NotDetected) Ur Oxycodone Screen (NotDetected) Urine Methadone Screen (NotDetected) Ur Propoxyphene Screen (NotDetected) Acetaminophen ug/mL Ur Barbiturates Screen (NotDetected) U Tricyclic Antidepress (NotDetected) Ur Phencyclidine Scrn (NotDetected) Ur Amphetamines Screen (NotDetected) U Methamphetamines Scrn (NotDetected) U Benzodiazepines Scrn (NotDetected) Urine Cocaine Screen (NotDetected) U Marijuana (THC) Screen (NotDetected) Serum Alcohol mg/dL Coronavirus (PCR) (Not Detectd) 09/24/20 09/24/20 09/25/20 Range/Units 18:24 20:38 05:11 WBC (3.8-10.6) k/uL RBC (3.80-5.40) m/uL Hgb (11.4-16.0) gm/dL Hct (34.0-46.0) % MCV (80.0-100.0) fL MCH (25.0-35.0) pg MCHC (31.0-37.0) g/dL RDW (11.5-15.5) % Plt Count (150-450) k/uL MPV Neutrophils % % Lymphocytes % % Monocytes % % Eosinophils % % Basophils % % Neutrophils # (1.3-7.7) k/uL Lymphocytes # (1.0-4.8) k/uL Monocytes # (0-1.0) k/uL Eosinophils # (0-0.7) k/uL Basophils # (0-0.2) k/uL Sodium (137-145) mmol/L Potassium (3.5-5.1) mmol/L Chloride (98-107) mmol/L Carbon Dioxide (22-30) mmol/L Anion Gap mmol/L BUN (7-17) mg/dL Creatinine (0.52-1.04) mg/dL Est GFR (CKD-EPI)AfAm (>60 ml/min/1.73 sqM) Est GFR (CKD-EPI)NonAf (>60 ml/min/1.73 sqM) Glucose (74-99) mg/dL POC Glucose (mg/dL) 95 (75-99) mg/dL POC Glu [employer] Account Executive ID Sonya Munoz [address] Glu mg/dL Hemoglobin A1c (4.0-6.0) % Calcium (8.4-10.2) mg/dL Total Bilirubin (0.2-1.3) mg/dL AST (14-36) U/L ALT (4-34) U/L Alkaline Phosphatase (38-126) U/L Total Protein (6.3-8.2) g/dL Albumin (3.5-5.0) g/dL Vitamin B6 18 (5-50) ug/L Vitamin B12 (200.0-944.0) pg/mL Folate ng/mL TSH (0.350-5.500) uIU/mL Free T4 (0.80-1.80) ng/dL Urine Color Urine Appearance (Clear) Urine pH (5.0-8.0) Ur Specific [place] (1.001-1.035) Urine Protein (Negative) Urine Glucose (UA) (Negative) Urine Ketones (Negative) Urine Blood (Negative) Urine Nitrite (Negative) Urine Bilirubin (Negative) Urine Urobilinogen (<2.0) mg/dL Ur Leukocyte Esterase (Negative) Urine RBC (0-5) /hpf Urine WBC (0-5) /hpf Ur Squamous Epith Cells (0-4) /hpf Urine Bacteria (None) /hpf Urine Yeast (Budding) (None) /hpf Salicylates mg/dL Urine Opiates Screen Not Detected (NotDetected) Ur Oxycodone Screen Not Detected (NotDetected) Urine Methadone Screen Not Detected (NotDetected) Ur Propoxyphene Screen Not Detected (NotDetected) Acetaminophen ug/mL Ur Barbiturates Screen Not Detected (NotDetected) U Tricyclic Antidepress Detected H (NotDetected) Ur Phencyclidine Scrn Not Detected (NotDetected) Ur Amphetamines Screen Not Detected (NotDetected) U Methamphetamines Scrn Not Detected (NotDetected) U Benzodiazepines Scrn Detected H (NotDetected) Urine Cocaine Screen Not Detected (NotDetected) U Marijuana (THC) Screen Not Detected (NotDetected) Serum Alcohol mg/dL Coronavirus (PCR) (Not Detectd) 09/25/20 09/25/20 09/25/20 Range/Units 07:28 11:53 17:04 WBC (3.8-10.6) k/uL RBC (3.80-5.40) m/uL Hgb (11.4-16.0) gm/dL Hct (34.0-46.0) % MCV (80.0-100.0) fL MCH (25.0-35.0) pg MCHC (31.0-37.0) g/dL RDW (11.5-15.5) % Plt Count (150-450) k/uL MPV Neutrophils % % Lymphocytes % % Monocytes % % Eosinophils % % Basophils % % Neutrophils # (1.3-7.7) k/uL Lymphocytes # (1.0-4.8) k/uL Monocytes # (0-1.0) k/uL Eosinophils # (0-0.7) k/uL Basophils # (0-0.2) k/uL Sodium (137-145) mmol/L Potassium (3.5-5.1) mmol/L Chloride (98-107) mmol/L Carbon Dioxide (22-30) mmol/L Anion Gap mmol/L BUN (7-17) mg/dL Creatinine (0.52-1.04) mg/dL Est GFR (CKD-EPI)AfAm (>60 ml/min/1.73 sqM) Est GFR (CKD-EPI)NonAf (>60 ml/min/1.73 sqM) Glucose (74-99) mg/dL POC Glucose (mg/dL) 112 H 111 H 108 H (75-99) mg/dL POC Glu [employer] Marcella Feldman Jennifer Kirschner, Tiffany [address] Glu mg/dL Hemoglobin A1c (4.0-6.0) % Calcium (8.4-10.2) mg/dL Total Bilirubin (0.2-1.3) mg/dL AST (14-36) U/L ALT (4-34) U/L Alkaline Phosphatase (38-126) U/L Total Protein (6.3-8.2) g/dL Albumin (3.5-5.0) g/dL Vitamin B6 (5-50) ug/L Vitamin B12 (200.0-944.0) pg/mL Folate ng/mL TSH (0.350-5.500) uIU/mL Free T4 (0.80-1.80) ng/dL Urine Color Urine Appearance (Clear) Urine pH (5.0-8.0) Ur Specific [place] (1.001-1.035) Urine Protein (Negative) Urine Glucose (UA) (Negative) Urine Ketones (Negative) Urine Blood (Negative) Urine Nitrite (Negative) Urine Bilirubin (Negative) Urine Urobilinogen (<2.0) mg/dL Ur Leukocyte Esterase (Negative) Urine RBC (0-5) /hpf Urine WBC (0-5) /hpf Ur Squamous Epith Cells (0-4) /hpf Urine Bacteria (None) /hpf Urine Yeast (Budding) (None) /hpf Salicylates mg/dL Urine Opiates Screen (NotDetected) Ur Oxycodone Screen (NotDetected) Urine Methadone Screen (NotDetected) Ur Propoxyphene Screen (NotDetected) Acetaminophen ug/mL Ur Barbiturates Screen (NotDetected) U Tricyclic Antidepress (NotDetected) Ur Phencyclidine Scrn (NotDetected) Ur Amphetamines Screen (NotDetected) U Methamphetamines Scrn (NotDetected) U Benzodiazepines Scrn (NotDetected) Urine Cocaine Screen (NotDetected) U Marijuana (THC) Screen (NotDetected) Serum Alcohol mg/dL Coronavirus (PCR) (Not Detectd) 09/25/20 09/25/20 Range/Units 18:25 22:51 WBC (3.8-10.6) k/uL RBC (3.80-5.40) m/uL Hgb (11.4-16.0) gm/dL Hct (34.0-46.0) % MCV (80.0-100.0) fL MCH (25.0-35.0) pg MCHC (31.0-37.0) g/dL RDW (11.5-15.5) % Plt Count (150-450) k/uL MPV Neutrophils % % Lymphocytes % % Monocytes % % Eosinophils % % Basophils % % Neutrophils # (1.3-7.7) k/uL Lymphocytes # (1.0-4.8) k/uL Monocytes # (0-1.0) k/uL Eosinophils # (0-0.7) k/uL Basophils # (0-0.2) k/uL Sodium (137-145) mmol/L Potassium (3.5-5.1) mmol/L Chloride (98-107) mmol/L Carbon Dioxide (22-30) mmol/L Anion Gap mmol/L BUN (7-17) mg/dL Creatinine (0.52-1.04) mg/dL Est GFR (CKD-EPI)AfAm (>60 ml/min/1.73 sqM) Est GFR (CKD-EPI)NonAf (>60 ml/min/1.73 sqM) Glucose (74-99) mg/dL POC Glucose (mg/dL) 114 H (75-99) mg/dL POC Glu [employer] Account Executive ID SalbadorDiana [address] Glu mg/dL Hemoglobin A1c (4.0-6.0) % Calcium (8.4-10.2) mg/dL Total Bilirubin (0.2-1.3) mg/dL AST (14-36) U/L ALT (4-34) U/L Alkaline Phosphatase (38-126) U/L Total Protein (6.3-8.2) g/dL Albumin (3.5-5.0) g/dL Vitamin B6 (5-50) ug/L Vitamin B12 (200.0-944.0) pg/mL Folate ng/mL TSH (0.350-5.500) uIU/mL Free T4 (0.80-1.80) ng/dL Urine Color Yellow Urine Appearance Cloudy H (Clear) Urine pH 5.5 (5.0-8.0) Ur Specific [place] 1.009 (1.001-1.035) Urine Protein Negative (Negative) Urine Glucose (UA) Negative (Negative) Urine Ketones Negative (Negative) Urine Blood Small H (Negative) Urine Nitrite Negative (Negative) Urine Bilirubin Negative (Negative) Urine Urobilinogen <2.0 (<2.0) mg/dL Ur Leukocyte Esterase Large H (Negative) Urine RBC 2 (0-5) /hpf Urine WBC 54 H (0-5) /hpf Ur Squamous Epith Cells <1 (0-4) /hpf Urine Bacteria Few H (None) /hpf Urine Yeast (Budding) Occasional H (None) /hpf Salicylates mg/dL Urine Opiates Screen (NotDetected) Ur Oxycodone Screen (NotDetected) Urine Methadone Screen (NotDetected) Ur Propoxyphene Screen (NotDetected) Acetaminophen ug/mL Ur Barbiturates Screen (NotDetected) U Tricyclic Antidepress (NotDetected) Ur Phencyclidine Scrn (NotDetected) Ur Amphetamines Screen (NotDetected) U Methamphetamines Scrn (NotDetected) U Benzodiazepines Scrn (NotDetected) Urine Cocaine Screen (NotDetected) U Marijuana (THC) Screen (NotDetected) Serum Alcohol mg/dL Coronavirus (PCR) (Not Detectd) - EKG Data -: EKG Interpreted by Me (EKG is sinus rhythm 89 PA 120 QRS 94 QTC 493) Disposition Clinical Impression: Epileptic seizure, generalized, Generalized seizure Disposition: ADMITTED IP TO THIS [facility] Condition: Stable Is patient prescribed a controlled substance at d/c from ED?: No
[2020-09-24] MEDS ORDERED: SODIUM CHLORIDE 0.9% 500 ML 500 ML IV STA (04:33)
[2020-09-24] MEDS ORDERED: SODIUM CHLORIDE 0.9% 1,000 ML IV STA (04:33)
[2020-09-24] MEDS ORDERED: SODIUM CHLORIDE 0.9% 1,000 ML IV ONE (04:33)
[2020-09-24] MEDS ORDERED: levETIRAcetam IV 1,000 MG in SALINE 1 100ML.BAG IVPB STA (04:56)
[2020-09-24 05:07] LABS: ALT 23 U/L (4-34); Acetaminophen <10.0 ug/mL; African American GFR (CKD) 89 (>60 ml/min/1.73 sqM); Albumin 4.7 g/dL (3.5-5.0); Alcohol <10 mg/dL; Anion Gap 10 mmol/L; Blood Urea Nitrogen 24 mg/dL (7-17); Calcium 9.8 mg/dL (8.4-10.2); Carbon Dioxide 29 mmol/L (22-30); Chloride 102 mmol/L (98-107); Glucose 113 mg/dL (74-99); Non-African American GFR(CKD) 77 (>60 ml/min/1.73 sqM); Salicylate <1.0 mg/dL; Sodium 141 mmol/L (137-145); Total Protein 8.1 g/dL (6.3-8.2)
[2020-09-24 05:24] LABS: AST 48 U/L (14-36); Alkaline Phosphatase 32 U/L (38-126); Potassium 5.5 mmol/L (3.5-5.1)
[2020-09-24 05:26] LABS: Basophils % (A) 1 %; Eosinophils # (A) 0.2 k/uL (0-0.7); Eosinophils % (A) 2 %; HCT 37.9 % (34.0-46.0); Lymphocytes # (A) 0.7 k/uL (1.0-4.8); Lymphocytes % (A) 10 %; MCH 31.6 pg (25.0-35.0); MCHC 34.4 g/dL (31.0-37.0); MCV 91.7 fL (80.0-100.0); Mean Platelet Volume 7.2; Monocytes # (A) 0.4 k/uL (0-1.0); Monocytes % (A) 6 %; Neutrophils # (A) 5.6 k/uL (1.3-7.7); Neutrophils % (A) 81 %; Platelet Count 236 k/uL (150-450); RBC 4.13 m/uL (3.80-5.40); WBC 6.9 k/uL (3.8-10.6)
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
[2020-09-24] MEDS ORDERED: NON FORMULARY DRUG (Aspirin Ec 81 MG Tablet.Dr) PO SCH (10:15)
[2020-09-24 11:29] LABS: Glucose,Whole Blood 165 mg/dL (75-99)
[2020-09-24] MEDS: QUEtiapine 25 MG TAB PO SCH (11:56)
[2020-09-24] MEDS: lisinopriL 10 MG TAB PO SCH (11:56)
[2020-09-24] MEDS: CHOLECALCIFEROL 25 MCG (1000 IU) TABLET PO SCH (11:56)
[2020-09-24] MEDS: metFORMIN 500 MG TAB PO SCH ×2 (11:56→17:36)
[2020-09-24] MEDS: ASPIRIN 81 MG PO SCH (11:56)
[2020-09-24] MEDS: INSULIN DETEMIR (LEVEMIR) 100 UNIT/ML SYR SQ SCH (11:56)
[2020-09-24] MEDS: MULTIVITAMINS, THERA 1 EACH TAB PO SCH (11:56)
[2020-09-24] MEDS: PIOGLITAZONE 15 MG TAB PO SCH (11:57)
[2020-09-24] MEDS: BISOPROLOL-HCTZ 5-6.25 MG 1 EACH TAB PO SCH (11:57)
[2020-09-24] MEDS ORDERED: LORazepam 2 MG/ML INJ IV STA (15:49)
[2020-09-24 17:16] LABS: Glucose,Whole Blood 79 mg/dL (75-99)
--- NOTE | 2020-09-24 17:17 | EEG ---
ELECTROENCEPHALOGRAM REPORT DATE OF SERVICE: 09/24/2020 CLINICAL HISTORY: This is a 59-year-old woman with a history of dementia who presented to the hospital because of episode of unresponsiveness and jerking of the extremities. This video EEG is obtained to evaluate for seizure and epileptiform activity. RELEVANT MEDICATION: Keppra. EEG TYPE: A routine 21-channel EEG is performed with video using the 10/20 electrode placement system. DESCRIPTION: Wakefulness is obtained. During the study there is significant myogenic artifact throughout the entire study, predominantly over the bilateral frontal central leads, that obscures the background. Cannot comment on slowing. Interictal and ictal: There is no obvious seizure from the limited study. ACTIVATION PROCEDURE: Photic stimulation hyperventilation are not performed because of the patient's lack of cooperation. As a result of the patient's restlessness, she pulled off her leads, and as a result the patient's exam was aborted. CLINICAL INTERPRETATION: This is a limited study because of the significant myogenic artifact. From the limited study, there is no obvious seizure that was seen, but again it was hard to assess because of the significant myogenic artifact. Could not comment on the patient's focal slowing, epileptiform discharges or background because of the significant artifact. Clinical correlation is recommended. MMODL / IJN: [id number] /
[2020-09-24 17:48] LABS: Glucose,Whole Blood 98 mg/dL (75-99)
[2020-09-24] MEDS ORDERED: LORazepam 2 MG/ML INJ IV PRN ×2 (18:33→19:27)
[2020-09-24 18:36] LABS: Hemoglobin A1C 6.1 % (4.0-6.0)
[2020-09-24] MEDS: levETIRAcetam 500 MG TAB PO SCH (19:30)
[2020-09-24] MEDS: ATORVASTATIN 40 MG TAB PO SCH (19:30)
[2020-09-24] MEDS: QUEtiapine 50 MG TAB PO SCH (19:30)
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
[2020-09-24 20:39] LABS: Glucose,Whole Blood 95 mg/dL (75-99)
[2020-09-24 22:10] LABS: Folate, Serum >24.0 ng/mL
[2020-09-25 07:29] LABS: Glucose,Whole Blood 112 mg/dL (75-99)
[2020-09-25] MEDS: CHOLECALCIFEROL 25 MCG (1000 IU) TABLET PO SCH (09:39)
[2020-09-25] MEDS: lisinopriL 10 MG TAB PO SCH (09:39)
[2020-09-25] MEDS: ASPIRIN 81 MG PO SCH (09:39)
[2020-09-25] MEDS: metFORMIN 500 MG TAB PO SCH ×2 (09:39→17:21)
[2020-09-25] MEDS: ENOXAPARIN 40 MG/0.4 ML SYRINGE SQ SCH (09:39)
[2020-09-25] MEDS: levETIRAcetam 500 MG TAB PO SCH ×2 (09:39→20:16)
[2020-09-25] MEDS: MULTIVITAMINS, THERA 1 EACH TAB PO SCH (09:39)
[2020-09-25] MEDS: BISOPROLOL-HCTZ 5-6.25 MG 1 EACH TAB PO SCH (09:40)
[2020-09-25] MEDS: QUEtiapine 25 MG TAB PO SCH (09:40)
[2020-09-25] MEDS: PIOGLITAZONE 15 MG TAB PO SCH (09:40)
[2020-09-25 11:54] LABS: Glucose,Whole Blood 111 mg/dL (75-99)
[2020-09-25] MEDS: INSULIN DETEMIR (LEVEMIR) 100 UNIT/ML SYR SQ SCH (12:40)
[2020-09-25] MEDS ORDERED: SODIUM CHLORIDE 0.9% 1,000 ML IV STA (13:16)
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
[2020-09-25 17:05] LABS: Glucose,Whole Blood 108 mg/dL (75-99)
[2020-09-25 18:37] LABS: Amphetamine Screen,Urine Not Detected (NotDetected); Barbiturate Screen,Urine Not Detected (NotDetected); Benzodiazepines Screen,Urine Detected (NotDetected); Cocaine Screen,Urine Not Detected (NotDetected); Methadone Screen, Urine Not Detected (NotDetected); Opiate Screen,Urine Not Detected (NotDetected); Oxycodone Screen, Urine Not Detected (NotDetected); Phencyclidine Screen,Urine Not Detected (NotDetected); Tricyclic Antidepressant,Urine Detected (NotDetected); Urn Cannabinoid Scrn Not Detected (NotDetected)
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
[2020-09-25 18:44] LABS: Appearance,Urine Cloudy (Clear); Bacteria,Urine Few /hpf; Bilirubin,Urine Negative (Negative); Blood,Urine Small (Negative); Budding Yeast,Urine Occasional /hpf; Color,Urine Yellow; Glucose,Urine (UA) Negative (Negative); Ketones,Urine Negative (Negative); Leukocyte Esterase,Urine Large (Negative); Nitrite,Urine Negative (Negative); PH, Urine 5.5 (5.0-8.0); Protein,Urine Negative (Negative); RBC,Urine 2 /hpf (0-5); Specific Gravity,Urine 1.009 (1.001-1.035); Squamous Epithelial Cell,Urine <1 /hpf (0-4); Urobilinogen,Urine <2.0 mg/dL (<2.0); WBC,Urine 54 /hpf (0-5)
[2020-09-25] MEDS ORDERED: LORazepam 0.5 MG TAB PO PRN (19:04)
[2020-09-25] MEDS: ATORVASTATIN 40 MG TAB PO SCH (20:16)
[2020-09-25] MEDS: QUEtiapine 50 MG TAB PO SCH (20:17)
[2020-09-25 22:55] LABS: Glucose,Whole Blood 114 mg/dL (75-99)
[2020-09-26] MEDS ORDERED: LEVOTHYROXINE 25 MCG TAB PO SCH (06:30)
[2020-09-26 06:52] LABS: Glucose,Whole Blood 110 mg/dL (75-99)
[2020-09-26 07:13] LABS: Basophils % (A) 1 %; Eosinophils # (A) 0.4 k/uL (0-0.7); Eosinophils % (A) 7 %; Lymphocytes # (A) 1.1 k/uL (1.0-4.8); Lymphocytes % (A) 17 %; MCH 31.4 pg (25.0-35.0); MCHC 34.1 g/dL (31.0-37.0); MCV 92.1 fL (80.0-100.0); Monocytes # (A) 0.5 k/uL (0-1.0); Monocytes % (A) 8 %; Neutrophils # (A) 4.4 k/uL (1.3-7.7); Neutrophils % (A) 67 %; Platelet Count 248 k/uL (150-450); RBC 4.45 m/uL (3.80-5.40); RDW 12.8 % (11.5-15.5); WBC 6.5 k/uL (3.8-10.6)
[2020-09-26] MEDS: INSULIN ASPART (NovoLOG) 100 UNIT/ML VIAL SQ SCH ×2 (07:16→12:47)
[2020-09-26] MEDS: ASPIRIN 81 MG PO SCH (07:46)
[2020-09-26] MEDS: CHOLECALCIFEROL 25 MCG (1000 IU) TABLET PO SCH (07:47)
[2020-09-26] MEDS: lisinopriL 10 MG TAB PO SCH (07:47)
[2020-09-26] MEDS: QUEtiapine 25 MG TAB PO SCH (07:47)
[2020-09-26] MEDS: MULTIVITAMINS, THERA 1 EACH TAB PO SCH (07:47)
[2020-09-26] MEDS: ENOXAPARIN 40 MG/0.4 ML SYRINGE SQ SCH (07:47)
[2020-09-26] MEDS: metFORMIN 500 MG TAB PO SCH (07:47)
[2020-09-26] MEDS: INSULIN DETEMIR (LEVEMIR) 100 UNIT/ML SYR SQ SCH (07:47)
[2020-09-26 07:53] LABS: ALT 17 U/L (4-34); AST 27 U/L (14-36); African American GFR (CKD) 78 (>60 ml/min/1.73 sqM); Albumin 3.8 g/dL (3.5-5.0); Albumin/Globulin Ratio 1.3; Alkaline Phosphatase 38 U/L (38-126); Anion Gap 7 mmol/L; Blood Urea Nitrogen 16 mg/dL (7-17); Calcium 9.5 mg/dL (8.4-10.2); Carbon Dioxide 30 mmol/L (22-30); Chloride 104 mmol/L (98-107); Globulin 2.9 g/dL; Glucose 107 mg/dL (74-99); Non-African American GFR(CKD) 67 (>60 ml/min/1.73 sqM); Potassium 4.4 mmol/L (3.5-5.1); Sodium 141 mmol/L (137-145); Total Protein 6.7 g/dL (6.3-8.2)
[2020-09-26] MEDS: levETIRAcetam 500 MG TAB PO SCH (09:54)
[2020-09-26] MEDS: BISOPROLOL-HCTZ 5-6.25 MG 1 EACH TAB PO SCH (09:54)
[2020-09-26] MEDS: PIOGLITAZONE 15 MG TAB PO SCH (09:54)
[2020-09-26] MEDS ORDERED: LORazepam 2 MG/ML INJ IV STA (11:32)
[2020-09-26 12:08] LABS: Glucose,Whole Blood 100 mg/dL (75-99)
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
[2020-09-26 16:01] VITALS: BP 172/79; PULSE 67; RESP 17; TEMP 97.5
[2020-09-26] MEDS ORDERED: NITROFURANTOIN MONOHYD/M-CRYST 100 MG CAP PO SCH (21:00)
== END 2020-09-26 16:40 | disposition home health service (06) ==
LOC: EC 04:11 → 6NMEDSUR 04:34 → 4SSUR 09-25 22:27 → INTOOBSV 09-25 23:23 → OBSVTOIN 09-25 23:23 → UNDODISIN 09-26 16:40
PROVIDERS: ADMIT Internal Medicine; ATTEND Internal Medicine
DX: G40.409 Other generalized epilepsy and epileptic syndromes, not intractable, without status epilepticus (principal); N39.0 Urinary tract infection, site not specified; F01.50 Vascular dementia, unspecified severity, without behavioral disturbance, psychotic disturbance, mood disturbance, and anxiety; R94.31 Abnormal electrocardiogram [ECG] [EKG]; E11.9 Type 2 diabetes mellitus without complications; E87.5 Hyperkalemia; R74.01 Elevation of levels of liver transaminase levels; R45.1 Restlessness and agitation; E03.9 Hypothyroidism, unspecified; I10 Essential (primary) hypertension; Z20.822 Contact with and (suspected) exposure to COVID-19; Z79.4 Long term (current) use of insulin; Z79.82 Long term (current) use of aspirin; Z79.890 Hormone replacement therapy; Z79.899 Other long term (current) drug therapy; Z88.0 Allergy status to penicillin; Z88.1 Allergy status to other antibiotic agents; Z88.2 Allergy status to sulfonamides; Z85.71 Personal history of Hodgkin lymphoma; Z86.73 Personal history of transient ischemic attack (TIA), and cerebral infarction without residual deficits; Z90.710 Acquired absence of both cervix and uterus; Z87.891 Personal history of nicotine dependence; Z87.81 Personal history of (healed) traumatic fracture; Z87.820 Personal history of traumatic brain injury
CPT/HCPCS: 96361 ×4; 96372 ×2; 96374; 96376; 99285; 95816; 93005; 97116; 97162; 97535; 97166; 84207; 84439; 80053 ×2; 84443; 82607; 82746; 85025 ×2; 81001; 80306; 80143; 87086; 87077; 87186; 83036; 87635; 80179; G0378 ×4; G0480; J2060 ×2; J1650 ×2; J1953; 80320